=== PATIENT | female | born 1965 | race Caucasian/White ===

== ENCOUNTER 2019-12-16 09:18 | Outpatient (CLI) | payer BC, SELFPAY ==
--- NOTE | 2019-12-16 09:21 | MM_ITS ---
WS: [id number] Bilateral screening digital mammogram, 12/16/2019 Clinical Data: SCREENING Comparison: 11/29/2018, 10/16/2017, 09/26/2016, 09/20/2015, 09/14/2014, 06/27/2013. Findings: The breast parenchymal pattern shows heterogeneous density No spiculated masses or clustered calcific ations are seen. There are no secondary signs of carcinoma. MM/[place] [id number] Impression: 1. Negative bilateral mammogram unchanged. 2. Recommend annual screening mammograms. BIRADS: 1-Negative FOLLOW UP: 1 Year Follow-up The CAD credit checker was used.
== END 2019-12-16 09:19 | disposition home or self-care (01) ==
LOC: RADSHAW 09:19
PROVIDERS: PCP Nurse Practitioner Family; Visit Provider Nurse Practitioner Family
DX: Z12.31 Encounter for screening mammogram for malignant neoplasm of breast (principal)
CPT/HCPCS: 77067

== ENCOUNTER → 2020-11-23 09:45 | Outpatient (BNVA) | payer SELFPAY | PROVIDERS: PCP Nurse Practitioner Family; Visit Provider Dermatology | DX: F41.9 Anxiety disorder, unspecified (principal) ==

== ENCOUNTER → 2020-11-24 10:28 | Outpatient (BNVA) | payer SELFPAY | PROVIDERS: PCP Nurse Practitioner Family; Visit Provider Dermatology | DX: Z01.89 Encounter for other specified special examinations (principal) ==

== ENCOUNTER → 2020-11-24 10:28 | Outpatient (BNVA) | payer SELFPAY | PROVIDERS: PCP Nurse Practitioner Family; Visit Provider Dermatology | DX: Z01.89 Encounter for other specified special examinations (principal) ==

== ENCOUNTER 2020-12-21 09:16 | Outpatient (CLI) | payer OTHER, SELFPAY ==
--- NOTE | 2020-12-21 09:30 | MM_ITS ---
WS: [id number] BILATERAL DIGITAL SCREENING MAMMOGRAPHY WITH CAD CLINICAL INFORMATION: Z12.31 - Encounter for screening mammogram for malignant ... HISTORY: Screening mammogram. No current complaints. COMPARISON: December 16, 2019 TECHNIQUE: Bilateral CC and MLO views. FINDINGS: The breasts are composed of heterogeneous fibroglandular density tissue, which can limit the detectio n of small underlying mass lesions. No suspicious mass, asymmetry, calcifications, or architectural d istortion. No evidence of malignancy. MM/[place] [id number] IMPRESSION: BI-RADS: 1-Negative FOLLOW UP: 1 Year Follow-up Recommend return to annual screening mammography.
== END 2020-12-21 09:17 | disposition home or self-care (01) ==
LOC: RADSHAW 09:20
PROVIDERS: PCP Nurse Practitioner Family; Visit Provider Nurse Practitioner Family
DX: Z12.31 Encounter for screening mammogram for malignant neoplasm of breast (principal)
CPT/HCPCS: 77067

== ENCOUNTER 2020-12-29 09:53 | Outpatient (CLI) | payer OTHER, SELFPAY ==
--- NOTE | 2020-12-29 10:29 | XR_ITS ---
WS: [id number] Exam: XR hand RT min 3V* [id number] Date/Time of Exam: 12/29/2020 10:30 AM Reason For Exam: M79.643 - Pain in unspecified hand No fracture or dislocation. Degenerative changes in the IP joints noted. No sign of the bony erosion or periarticular demineralization. Normal soft tissues. XR/XR hand RT min 3V* [id number] IMPRESSION: 1. [id number] degenerative changes in the IP joints. No other significant finding.
== END 2020-12-29 09:54 | disposition home or self-care (01) ==
PROVIDERS: PCP Nurse Practitioner Family; Visit Provider Nurse Practitioner Family
DX: M79.641 Pain in right hand (principal)
CPT/HCPCS: 73130

== ENCOUNTER → 2021-02-14 10:47 | Outpatient (BNVA) | payer OTHER, SELFPAY | PROVIDERS: PCP Nurse Practitioner Family; Visit Provider Nurse Practitioner Family | DX: Z12.4 Encounter for screening for malignant neoplasm of cervix (principal); B37.3 Candidiasis of vulva and vagina; N90.89 Other specified noninflammatory disorders of vulva and perineum | CPT/HCPCS: 87070; 87205; 88175 ==

== ENCOUNTER 2021-02-25 14:40 | Outpatient (CLI) | payer OTHER, SELFPAY ==
--- NOTE | 2021-02-25 14:45 | XR_ITS ---
WS: [id number] LUMBAR SPINE: 7 VIEWS TECHNIQUE: AP, oblique, lateral, and L5-S1 spot. Lateral views in neutral, flexion and extension. HISTORY: M54.9 - Dorsalgia, unspecified COMPARISON: None available. Moderate rotoscoliosis lumbar spine to the RIGHT. Advanced degenerative disc space narrowing and mild osteophytosis in the lumbar spine. No fractures. Facet joint arthritis is moderate at L4-5 and L5-S1 . Pedicles are all moderately narrowed throughout the lumbar spine. With flexion and extension there is no instability. SI joints are symmetric bilaterally. No soft tissue abnormalities. XR/XR lumbar spine 6V w f/e [id number] IMPRESSION: 1. Moderate rotoscoliosis lumbar spine to the RIGHT. 2. Advanced degenerative disc disease and asymmetric disc space narrowing thro ughout the lumbar spine. No fractures. 3. No lumbar spine instability.
== END 2021-02-25 14:41 | disposition home or self-care (01) ==
PROVIDERS: PCP Nurse Practitioner Family; Visit Provider Nurse Practitioner Family
DX: M54.5 Low back pain (principal); G89.29 Other chronic pain; M41.86 Other forms of scoliosis, lumbar region; M51.36 Other intervertebral disc degeneration, lumbar region
CPT/HCPCS: 72114

== ENCOUNTER → 2021-03-11 09:01 | Outpatient (BNVA) | payer OTHER, SELFPAY | PROVIDERS: PCP Nurse Practitioner Family; Visit Provider Obstetrics & Gynecology | DX: N89.8 Other specified noninflammatory disorders of vagina (principal) | CPT/HCPCS: 88305 ==

== ENCOUNTER 2021-06-17 06:00 | Outpatient (RCR) | payer OTHER, SELFPAY | END 2021-07-04 23:59 | disposition home or self-care (01) | LOC: WPT 06:00 | PROVIDERS: PCP Nurse Practitioner Family; Referring Provider Nurse Practitioner Family; Visit Provider Nurse Practitioner Family | DX: M19.041 Primary osteoarthritis, right hand (principal); M54.9 Dorsalgia, unspecified; G89.29 Other chronic pain | CPT/HCPCS: 97110; 97162; 97530 ==

== ENCOUNTER 2021-06-23 08:45 | Outpatient (RCR) | payer OTHER, SELFPAY | END 2021-07-04 23:59 | disposition home or self-care (01) | LOC: SOT 08:45 | PROVIDERS: PCP Nurse Practitioner Family; Referring Provider Specialist; Visit Provider Specialist | DX: S63.659D Sprain of metacarpophalangeal joint of unspecified finger, subsequent encounter (principal) | CPT/HCPCS: 97022; 97110; 97165 ==

== ENCOUNTER 2021-07-05 06:00 | Outpatient (RCR) | payer OTHER, SELFPAY | END 2021-08-01 23:59 | disposition home or self-care (01) | LOC: WPT 06:00 | PROVIDERS: PCP Nurse Practitioner Family; Referring Provider Nurse Practitioner Family; Visit Provider Nurse Practitioner Family | DX: M19.041 Primary osteoarthritis, right hand (principal); M54.9 Dorsalgia, unspecified; G89.29 Other chronic pain | CPT/HCPCS: 97110; 97140 ==

== ENCOUNTER 2021-07-05 06:00 | Outpatient (RCR) | payer OTHER, SELFPAY | END 2021-08-01 23:59 | disposition home or self-care (01) | LOC: SOT 06:00 | PROVIDERS: PCP Nurse Practitioner Family; Visit Provider Specialist | DX: S63.659D Sprain of metacarpophalangeal joint of unspecified finger, subsequent encounter (principal) | CPT/HCPCS: 97110; 97140; 97168 ==

== ENCOUNTER 2022-01-12 14:47 | Outpatient (CLI) | payer OTHER, SELFPAY ==
--- NOTE | 2022-01-12 14:52 | MM_ITS ---
WS: [id number] BILATERAL 3D TOMOSYNTHESIS DIGITAL SCREENING MAMMOGRAPHY WITH CAD CLINICAL INFORMATION: SCREENING HISTORY: Screening mammogram. No current complaints. COMPARISON: December 22, 2019 TECHNIQUE: Bilateral CC and MLO views. FINDINGS: The breasts are composed of heterogeneous fibroglandular density tissue, which can limit the detectio n of small underlying mass lesions. No suspicious mass, asymmetry, calcifications, or architectural d istortion. No evidence of malignancy. MM/[place] [id number] IMPRESSION: BI-RADS: 1-Negative FOLLOW UP: 1 Year Follow-up Recommend return to annual screening mammography.
== END 2022-01-12 14:48 | disposition home or self-care (01) ==
LOC: RAD 14:47
PROVIDERS: PCP Nurse Practitioner Family; Visit Provider Family Medicine
DX: Z12.31 Encounter for screening mammogram for malignant neoplasm of breast (principal)
CPT/HCPCS: 77063; 77067

== ENCOUNTER → 2022-02-14 08:28 | Outpatient (BNVA) | payer SELFPAY | PROVIDERS: PCP Family Medicine; Visit Provider Dermatology | DX: Z00.00 Encounter for general adult medical examination without abnormal findings (principal) ==

== ENCOUNTER → 2022-08-15 09:27 | Outpatient (BNVA) | payer SELFPAY | PROVIDERS: PCP Family Medicine; Visit Provider Dermatology | DX: F41.9 Anxiety disorder, unspecified (principal) ==

== ENCOUNTER 2022-09-07 06:00 | Outpatient (RCR) | payer OTHER, SELFPAY | END 2022-10-01 23:59 | disposition home or self-care (01) | LOC: WPT 06:00 | PROVIDERS: Visit Provider Nurse Practitioner Family | DX: G89.29 Other chronic pain (principal); M54.9 Dorsalgia, unspecified; M54.32 Sciatica, left side; M51.36 Other intervertebral disc degeneration, lumbar region | CPT/HCPCS: 97110; 97112; 97161; 97530 ==

== ENCOUNTER → 2022-09-13 13:01 | Outpatient (BNVA) | payer OTHER, SELFPAY | PROVIDERS: Referring Provider Nurse Practitioner Family; Visit Provider Specialist | DX: G89.29 Other chronic pain (principal); M25.561 Pain in right knee; M25.562 Pain in left knee; M54.32 Sciatica, left side | CPT/HCPCS: 36415; 73560; 73565; 80053; 85025; 85651; 86140; 86200; 86431; 86705; 86706; 86709; 86803; 87340 ==

== ENCOUNTER 2022-10-02 06:00 | Outpatient (RCR) | payer OTHER, SELFPAY | END 2022-11-01 23:59 | disposition home or self-care (01) | LOC: WPT 06:00 | PROVIDERS: PCP Nurse Practitioner; Visit Provider Nurse Practitioner Family | DX: M51.36 Other intervertebral disc degeneration, lumbar region (principal); M54.9 Dorsalgia, unspecified; G89.29 Other chronic pain; M54.32 Sciatica, left side | CPT/HCPCS: 97110; 97112; 97530 ==

== ENCOUNTER 2022-11-01 16:55 | Outpatient (CLI) | payer OTHER, SELFPAY ==
--- NOTE | 2022-11-01 17:28 | XR_ITS ---
WS: [id number] Exam: XR hip BI 3-4V wo/[place] [id number] Date/Time of Exam: 11/01/2022 5:28 PM Reason For Exam: M25.552 - Pain in left hip Mild degenerative narrowing of the joint compartments of both hips. The pattern is bilaterally symmet rical. No fracture or dislocation. Normal bilateral soft tissues. XR/XR hip BI 3-4V wo/w pel [id number] IMPRESSION: 1. Mild symmetrical DJD of both hips. No fracture or other significant finding.
--- NOTE | 2022-11-01 17:28 | XR_ITS ---
WS: [id number] Exam: XR lumbar spine 2-3V* [id number] Date/Time of Exam: 11/01/2022 5:28 PM Reason For Exam: M25.551 - Pain in right hip Comparison 02/25/2021. No acute fracture or dislocation. Moderately advanced degenerative disc changes at all levels Roto de xtroscoliosis. Facet arthropathy at all levels. 7 mm degenerative retrolisthesis of L1 on L2. XR/XR lumbar spine 2-3V* [id number] IMPRESSION: 1. Moderately advanced degenerative disc changes and facet arthropathy at all l evels. Dextrorotoscoliosis. 2. No fracture identified. 3. 7 mm degenerative retrolisthesis of L1 on L2.
== END 2022-11-01 16:56 | disposition home or self-care (01) ==
PROVIDERS: PCP Family Medicine; Visit Provider Family Medicine
DX: M54.16 Radiculopathy, lumbar region (principal); M47.816 Spondylosis without myelopathy or radiculopathy, lumbar region; M51.36 Other intervertebral disc degeneration, lumbar region; M16.0 Bilateral primary osteoarthritis of hip; M54.9 Dorsalgia, unspecified
CPT/HCPCS: 72100; 73522

== ENCOUNTER → 2022-11-09 13:57 | Outpatient (BNVA) | payer OTHER, SELFPAY | PROVIDERS: PCP Family Medicine; Referring Provider Family Medicine; Visit Provider Orthopaedic Surgery | DX: M54.16 Radiculopathy, lumbar region (principal) | CPT/HCPCS: 72110 ==

== ENCOUNTER 2023-01-05 08:37 | Outpatient (CLI) | payer OTHER, SELFPAY ==
--- NOTE | 2023-01-05 08:45 | MR_ITS ---
WS: [id number] MRI LUMBAR SPINE NONCONTRAST TECHNIQUE: Sagittal T1, T2 and STIR imaging. Axial T1 and T2 imaging. CLINICAL INFORMATION: M54.16 - Radiculopathy, lumbar regio COMPARISON: None. FINDINGS: Mild lumbar curve. No acute compression. Disc space narrowing worse at L2-L3 L3-L4 and L4-L5. Endplat e degenerative changes involving the L1-L2 and L2-L3 endplates. Adrenal glands are normal. Tiny shall ow central protrusion T11-T12. L1-L2: Mild disc bulging with narrowing subarticular recess bilaterally. Mild facet arthropathy. Mild RIGHT foraminal narrowing. L2-L3: Slight retrolisthesis. Mild disc bulge with mild central canal stenosis. Impingement traversin g LEFT L3 nerve root in the subarticular recess. Moderate facet arthropathy. Moderate LEFT foraminal narrowing impinges the exiting LEFT L2 nerve root. L3-L4: Disc space narrowing with mild disc bulging. Mild central canal stenosis. Moderate facet arthr opathy. Impingement traversing LEFT L4 nerve root in the subarticular recess. Mild LEFT foraminal neftali rowing. RIGHT foramen is patent. L4-L5: Mild disc bulging with moderate central canal stenosis. Impingement traversing RIGHT greater t harris LEFT L5 nerve roots moderate RIGHT foraminal narrowing impinges the exiting RIGHT L4 nerve root. Mild LEFT foraminal narrowing. Mild facet arthropathy. L5-S1: Mild annular bulging with impingement on the LEFT subarticular recess and traversing LEFT S1 nerve root. Mild LEFT foraminal narrowing. Mild facet arthropathy. Visualized pelvic bony structures: Normal. Paravertebral soft tissues: Normal. MR/MR lumbar spine wo con* [id number] IMPRESSION: 1. Disc bulge L5-S1 impinges the traversing LEFT S1 nerve root in the subartic ular recess. Mild LEFT L5-S1 foraminal narrowing. 2. Mild central canal stenosis L2-L3 and L3-L4 with impingement on the brandyn ing LEFT L3 and L4 nerve roots respectively. 3. Moderate central canal stenosis L4-L5 with impingement on the traversing RI GHT greater than LEFT L5 nerve roots. 4. Moderate foraminal narrowing worse at LEFT L2-L3, and RIGHT L4-L5 with impi ngement on the exiting LEFT L2 and RIGHT L4 nerve roots respectively
== END 2023-01-05 08:38 | disposition home or self-care (01) ==
LOC: RAD 08:39
PROVIDERS: PCP Family Medicine; Visit Provider Nurse Practitioner Family
DX: M54.16 Radiculopathy, lumbar region (principal); M54.32 Sciatica, left side; M51.37 Other intervertebral disc degeneration, lumbosacral region; M48.07 Spinal stenosis, lumbosacral region; M54.9 Dorsalgia, unspecified
CPT/HCPCS: 72148

== ENCOUNTER 2023-01-15 08:27 | Outpatient (CLI) | payer OTHER, SELFPAY ==
--- NOTE | 2023-01-15 08:33 | MM_ITS ---
WS: [id number] SCREENING DIGITAL TOMOSYNTHESIS MAMMOGRAM WITH CAD HISTORY: SCREENING COMPARISON: 01/12/2022, 09/26/2016 and 12/16/2019 Bilateral CC and MLO with tomosynthesis views submitted. Synthetic mammography reviewed. Computer aid ed detection analyzed. Breast composition: The breasts are heterogeneously dense, which may obscure small masses. No suspici ous masses, microcalcifications or architectural distortion. IMPRESSION: MM/[place] [id number] BI-RADS: 1-Negative FOLLOW UP: 1 Year Follow-up
== END 2023-01-15 08:28 | disposition home or self-care (01) ==
LOC: RAD 08:29 → MOBLMAM 08:32
PROVIDERS: PCP Family Medicine; Visit Provider Family Medicine
DX: Z12.31 Encounter for screening mammogram for malignant neoplasm of breast (principal)
CPT/HCPCS: 77063; 77067

== ENCOUNTER → 2023-02-13 09:29 | Outpatient (BNVA) | payer OTHER, SELFPAY | PROVIDERS: PCP Family Medicine; Visit Provider Dermatology | DX: Z13.6 Encounter for screening for cardiovascular disorders (principal) ==

== ENCOUNTER → 2023-07-26 10:28 | Outpatient (BNVA) | payer OTHER, SELFPAY | PROVIDERS: PCP Family Medicine; Visit Provider Dermatology | DX: Z13.6 Encounter for screening for cardiovascular disorders (principal) | CPT/HCPCS: 80061; 82947; 83036 ==

== ENCOUNTER 2024-01-18 12:50 | Outpatient (CLI) | payer OTHER, SELFPAY ==
--- NOTE | 2024-01-18 12:57 | MM_ITS ---
WS: [id number] BILATERAL 3D TOMOSYNTHESIS DIGITAL SCREENING MAMMOGRAPHY WITH CAD CLINICAL INFORMATION: SCREENING HISTORY: Screening mammogram. No current complaints. COMPARISON: 2022 TECHNIQUE: Bilateral CC and MLO views. FINDINGS: The breasts are composed of heterogeneous fibroglandular density tissue, which can limit the detectio n of small underlying mass lesions. No suspicious mass, asymmetry, calcifications, or architectural d istortion. No evidence of malignancy. MM/[place] [id number] IMPRESSION: BI-RADS: 1-Negative FOLLOW UP: 1 Year Follow-up Recommend return to annual screening mammography.
== END 2024-01-18 12:51 | disposition home or self-care (01) ==
LOC: RAD 12:50
PROVIDERS: PCP Family Medicine; Visit Provider Nurse Practitioner Family
DX: Z12.31 Encounter for screening mammogram for malignant neoplasm of breast (principal); R92.323 Mammographic fibroglandular density, bilateral breasts
CPT/HCPCS: 77063; 77067

== ENCOUNTER 2025-01-20 07:55 | Outpatient (CLI) | payer OTHER, SELFPAY ==
--- NOTE | 2025-01-20 08:00 | MM_ITS ---
WS: [id number] BILATERAL 3D TOMOSYNTHESIS DIGITAL SCREENING MAMMOGRAPHY WITH CAD CLINICAL INFORMATION: SCREENING HISTORY: Screening mammogram. No current complaints. COMPARISON: 2023 TECHNIQUE: Bilateral CC and MLO views. FINDINGS: The breasts are composed of heterogeneous fibroglandular density tissue, which can limit the detection of small underlying mass lesions. Stable nodular breast tissue bilaterally. No suspicious mass, asymmetry, calcifications, or architectural distortion. No evidence of malignancy. MM/MM [facility] tomosynthesis [id number] IMPRESSION: DENSITY: The breasts are heterogeneously dense, which may obscure small masses. BI-RADS: 1 - Negative FOLLOW UP: 1 Year Follow-up Recommend return to annual screening mammography.
== END 2025-01-20 07:56 | disposition home or self-care (01) ==
LOC: RAD 07:56
PROVIDERS: PCP Nurse Practitioner Family; Visit Provider Nurse Practitioner Family
DX: Z12.31 Encounter for screening mammogram for malignant neoplasm of breast (principal); R92.323 Mammographic fibroglandular density, bilateral breasts; R92.333 Mammographic heterogeneous density, bilateral breasts; N64.89 Other specified disorders of breast
CPT/HCPCS: 77063; 77067